=== PATIENT | female | born 1995 | race Caucasian/White ===

== ENCOUNTER → 2017-10-05 13:18 | Outpatient (REF) | payer BC, SELFPAY ==
[2017-10-05 22:12] LABS: Abs Immature Grans 0.03 k/cumm (0.0-0.09); Absolute Basophil Count 0.02 k/cumm (0.0-0.2); Absolute Lymphocyte Count 1.49 k/cumm (1.2-3.4); Absolute Monocyte Count 0.86 k/cumm (0.11-0.7); Basophils % 0.2; Eosinophils % 0.9; HCT 38.5 % (36.0-46.0); Immature Grans % 0.3; Lymphocytes % 12.8; Mean Corp. HGB Concentration 33.8 g/dL (32.0-36.0); Mean Corpuscular Hemoglobin 31.5 pg (27.0-33.0); Mean Corpuscular Volume 93.2 fL (80-95); Monocytes % 7.4; Neutrophils % 78.4; Platelet Count 265 x1000/uL (130-400); RBC 4.13 m/cumm (4.00-5.20); RBC Distribution Width 12.6 % (11.7-14.6); White Blood Cell Count 11.67 k/cumm (4.4-10.8)
[2017-10-05 22:19] LABS: Mono Screening Negative (Negative)
[2017-10-05 22:22] LABS: Absolute Eosinophil Count 0.11 k/cumm (0.0-0.7); Absolute Neutrophil Count 9.15 k/cumm (1.2-6.7)
== END ==
LOC: NCHCN 13:18
PROVIDERS: PCP Specialist/Technologist Athletic Trainer; Visit Provider Specialist/Technologist Athletic Trainer
DX: R53.83 Other fatigue (principal); J02.9 Acute pharyngitis, unspecified
CPT/HCPCS: 85025; 86308; 87070

== ENCOUNTER 2019-02-24 15:40 | Emergency (ER) | payer OTHER, BC, SELFPAY ==
[2019-02-24 15:43] VITALS: BP 128/75; PULSE 80; RESP 16; TEMP 36.7; O2SAT 99
--- NOTE | 2019-02-24 16:02 | ED.GENADUL_ITS ---
Discharge Plan Disposition Patient Disposition: HOME Condition: Improving Discharge Details Chief Complaint: Laceration Clinical Impression: Laceration of hand, left Primary Care Provider: Teddy Spring ED Provider: Vikas Perez Home Meds and New Rx's Prescriptions: Continued Bcp 1 tab PO DAILY RF: 0 Discharge Instructions Instructions: Laceration (ED) Additional Instructions: Return if you develop fever, foul-smelling discharge from the wound or any other acute concerns. Return in 7 to 8 days for removal of stitches. Wear gloves while at work until healed. Medical Decision Making 23-year-old female presents from work where she punctured her left hand with a knife in the kitchen. Her tetanus is up-to-date. She was consented, anesthetized, liberally irrigated, examined in a bloodless field without evidence of underlying structural injury. Repaired with 2 interrupted nylon sutures. Good wound apposition. Dressed at the bedside. She is stable for discharge to home. HPI General Mode of arrival: ambulatory . Date/Time Provider Initiated Documentation: 02/24/19 15:41 . Limitations to Documentation: no limitations . Information obtained by: patient . History of Present Illness 23 year old F presents to the emergency department with the chief complaint of Left thumb laceration at work, described as mild, and is localized to the left and upper extremity. Patient reports no radiation. Patient started experiencing this minute(s) and it has been constant. No relieving factors improve symptom(s), No exacerbating factors reported . Patient did receive the following treatments prior to arrival, other (Dressing placed) Related Data Home Medications Medication Instructions Recorded Confirmed Bcp 1 tab PO DAILY 02/24/19 02/24/19 Allergies Allergy/AdvReac Type Severity Reaction Status Date / Time No Known Allergies Allergy Unverified 02/24/19 16:00 General Stated Complaint: Laceration BASSAM: 4 Review of Systems Narrative: Tetanus up-to-date. No other injury. She has otherwise been well. No numbness or tingling. [facility] Social History Smoking/Tobacco Use Status: Never Drug use: Never Do you feel safe at home: Yes Do you feel safe in your relationship?: Yes Exam Narrative Exam Narrative: GEN: awake, alert, oriented 3. Pleasant, well groomed, interactive. HEAD: Normocephalic, atraumatic ENT: Mucous membranes moist, oropharynx unremarkable, External ear exam unremarkable EYES: PERRL, EOMI EXT: Full ROM, no edema, no rash. There is a punctate 0.5 cm laceration at the base of the thumb overlying the thenar eminence. Sensation is intact and all range of motion's of the thumb are intact with normal strength. Neuro: Grossly normal neurologic exam, conversant, interactive. Psych: Speech fluent, thoughts congruent, affect normal Course Vital Signs Vital signs: Vital Signs Temperature 36.7 C 02/24/19 15:43 Pulse 80 02/24/19 15:43 Respiratory Rate 16 02/24/19 15:43 Blood Pressure 128/75 02/24/19 15:43 Pulse Oximetry 99 02/24/19 15:43 Temperature 36.7 C 02/24/19 15:43 Temperature Source Temporal Artery Scan 02/24/19 15:43 Pulse 80 02/24/19 15:43 Respiratory Rate 16 02/24/19 15:43 Respiratory Effort Non-Labored 02/24/19 15:46 Blood Pressure 128/75 02/24/19 15:43 Blood Pressure Position Sitting 02/24/19 15:43 Pulse Oximetry 99 02/24/19 15:43 Oxygen Delivery Method Room Air 02/24/19 15:43 Oxygen Flow Rate 0 02/24/19 15:43 Pain Level 3 02/24/19 15:43 Procedures Laceration Laceration 1: Site: hand Side (If applicable): left Size (cm): 0.5 Description: linear Depth: simple, single layer Local Anesthetic: Lidocaine 1% Pre-repair: wound explored and irrigated extensively Skin layer closed with: nylon Size (cm): 4-0 Technique: simple, interrupted
== END 2019-02-24 16:18 | disposition home or self-care (01) ==
PROVIDERS: Emergency Provider Emergency Medicine; PCP Specialist/Technologist Athletic Trainer
DX: S61.412A Laceration without foreign body of left hand, initial encounter (principal); W26.0XXA Contact with knife, initial encounter
CPT/HCPCS: 12001

== ENCOUNTER 2019-03-04 18:58 | Emergency (ER) | payer BC, SELFPAY ==
[2019-03-04 19:02] VITALS: BP 130/60; PULSE 83; RESP 16; TEMP 36.6; O2SAT 98
--- NOTE | 2019-03-04 19:04 | W.ED.GENAD ---
Discharge Plan Disposition Patient Disposition: HOME Condition: Good Discharge Details Chief Complaint: SutureRem Clinical Impression: Encounter for removal of sutures Primary Care Provider: Teddy Spring ED Provider: Sarah Del Cid Home Meds and New Rx's Prescriptions: No Action No Known Home Meds RF: 0 Discharge Instructions Instructions: Stitches Removal (ED) Medical Decision Making Patient is a pleasant 23-year-old josfu-raxo-[id number] female presents today with chief complaint of suture removal to the left hand. Left thumb after she cut herself with a knife. She reports she was seen here 8 days ago at which time #2 sutures were placed into the flexor surface of the MCP joint of the left. Wound appears to be healing well no signs of infection. #2 stitches removed by myself. Wound is well approximated. We discussed wound care further we discussed activities to avoid. Reiterated the symptoms of infection. She will follow-up as needed. All of her questions and concerns were addressed and she is in agreement this plan. HPI General Mode of arrival: ambulatory. Date/Time Provider Initiated Documentation: 03/04/19 19:04. Limitations to Documentation: no limitations. Information obtained by: patient and RN notes reviewed. History of Present Illness 23 year old F presents to the emergency department with the chief complaint of suture removal base of left thumb, described as mild (denies any pain), and is localized to the left and upper extremity. Patient reports no radiation. Patient started experiencing this day(s) (8) and it has been now resolved. No relieving factors improve symptom(s), No exacerbating factors reported . Patient notes no other symptoms.. Patient did receive the following treatments prior to arrival, other (#2 sutures placed here 8 days ago) Related Data Home Medications Medication Instructions Recorded Confirmed Unknown [No Known Home Meds] 03/04/19 03/04/19 Allergies Allergy/AdvReac Type Severity Reaction Status Date / Time No Known Allergies Allergy Unverified 03/04/19 19:05 Review of Systems Constitutional Constitutional: Reports as per HPI, Denies chills, Denies fever(s) and Denies weakness Musculoskeletal Musculoskeletal: Reports as per HPI and Denies tingling Integumentary/Breasts Skin/Breast: Reports as per HPI Neurologic Neurologic: Denies sensory deficit, Denies tingling and Denies weakness FORMERLY [facility], 1928–1983 Medical History No acute medical problems (Acute) Social History Smoking/Tobacco Use Status: Never Alcohol Intake: current Alcohol Intake frequency: a few times a month Alcohol type: wine Substance use type: does not use Additional Social history: pt is here with significant other; interacts well Exam Const General: cooperative, healthy appearing, comfortable, no acute distress and well developed Nutritional Appearance: average body habitus and well nourished Orientation: alert and awake Resp Effort & Inspection: normal respiratory effort, able to speak in complete sentences and no respiratory distress Cardio Rate: regular rate Rhythm: regular rhythm Skin Trauma: laceration (flexor surface left thumb MCP joint, healing well) Neuro General: alert and awake Cognition: normal cognition Speech: speech normal Gait: normal gait Motor: muscle tone normal throughout Extrem General: normal to inspection, full ROM, normal capillary refill and no joint enlargement Left upper extremity: normal to inspection, full ROM, normal capillary refill and no joint enlargement Psych Appearance: grossly normal and well kempt Mental Status: mental status grossly normal Speech and Movement: speech and movement normal
== END 2019-03-04 19:15 | disposition home or self-care (01) ==
LOC: ER 19:17
PROVIDERS: Emergency Provider Physician Assistant; PCP Specialist/Technologist Athletic Trainer
DX: S61.412D Laceration without foreign body of left hand, subsequent encounter (principal); W26.0XXD Contact with knife, subsequent encounter; Z48.02 Encounter for removal of sutures

== ENCOUNTER 2020-01-09 17:56 | Outpatient (REF) | payer BC, SELFPAY ==
[2020-01-11 14:15] LABS: Patient Race White; SARS-CoV-2 RNA Undetected (Undetected); SARS-CoV-2 Specimen Source Nasal
== END 2020-01-09 18:16 ==
LOC: NCHCN 17:56
PROVIDERS: PCP Specialist/Technologist Athletic Trainer; Visit Provider Nurse Practitioner Family
DX: J06.9 Acute upper respiratory infection, unspecified (principal)
CPT/HCPCS: U0003

== ENCOUNTER 2020-10-02 11:18 | Outpatient (REF) | payer BC, SELFPAY ==
[2020-10-02 20:49] LABS: Abs Immature Grans 0.05 10^3/uL (0.0-0.06); Absolute Basophil Count 0.03 10^3/uL (0.0-0.2); Absolute Eosinophil Count 0.37 10^3/uL (0.0-0.7); Absolute Lymphocyte Count 2.01 10^3/uL (1.2-3.4); Absolute Monocyte Count 0.59 10^3/uL (0.1-0.8); Basophils % 0.2; Eosinophils % 2.9; HCT 41.5 % (36.0-46.0); Immature Grans % 0.4; Lymphocytes % 15.6; MCH 30.8 pg (27.0-33.0); MCHC 33.7 % (32.0-36.0); MCV 91.4 fL (80-95); MPV 11.2 fL (8.0-11.0); Monocytes % 4.6; Neutrophils % 76.3; Nucleated RBC 0 %; Platelet Count 311 10^3/uL (130-400); RBC 4.54 10^6/uL (3.93-5.22); RDW 12.1 % (11.7-14.6); RDW-SD 40.9 fL
[2020-10-02 21:06] LABS: ALT 38 U/L (14-59); AST 20 U/L (15-37); Albumin 3.8 g/dL (3.4-5.0); Alkaline Phosphatase 75 U/L (46-116); Anion Gap 12.6 mmol/L (3-11); BUN 8 mg/dL (7-18); Bilirubin, Total 0.3 mg/dL (0.2-1.0); C-Reactive Protein 3.23 mg/dL (0.0-0.3); CO2 23.4 mmol/L (21.0-32.0); CREATININE 0.8 mg/dL (0.55-1.02); Calcium 9.4 mg/dL (8.5-10.1); Chloride 105 mmol/L (98-107); Glucose 91 mg/dL (74-106); Potassium 4.1 mmol/L (3.5-5.1); Sodium 141 mmol/L (136-145); Total Protein 7.4 g/dL (6.4-8.2)
[2020-10-02 21:07] LABS: Absolute Neutrophil Count 9.84 10^3/uL (1.2-6.7)
[2020-10-02 21:08] LABS: ESR 18 mm/hr (0-20)
[2020-10-03 14:24] LABS: COVID-19 RT-PCR UVMMC Result Negative (Negative)
[2020-10-04 10:09] LABS: Lyme Ab w Rflx to Lyme Confirm Negative (Negative)
[2020-10-09 11:19] LABS: IgA 128 mg/dL (85-499); Interpretation (See Note); Tissue Transglutaminase IgA <1.2 U/mL (<4.0)
== END 2020-10-02 11:19 | disposition home or self-care (01) ==
LOC: LBN 11:18
PROVIDERS: PCP Specialist/Technologist Athletic Trainer; Visit Provider Nurse Practitioner Family
DX: R19.7 Diarrhea, unspecified (principal); Z20.822 Contact with and (suspected) exposure to COVID-19
CPT/HCPCS: 80053; 82784; 83516; 85652; U0003; 85025; 86140; 86618

== ENCOUNTER 2020-10-02 12:00 | Outpatient (CLI) | payer BC, SELFPAY ==
--- NOTE | 2020-10-02 | DI.CT_ITS ---
Exam(s) CT ABDOMEN PELVIS W EXAM: CT ABDOMEN PELVIS W CLINICAL HISTORY: ABD PAIN R10.84, TENDER TO LIGHT TOUCH, 10-12 EPISODES WATERY DIARRHEA,. TECHNIQUE: Imaging Protocol: Axial computed tomography images with coronal and sagittal reformatted images were created and reviewed CONTRAST MATERIAL: Intravenous: Omnipaque 100cc Oral: None COMPARISON: No exams were available for comparison FINDINGS: VISUALIZED LUNG BASES: No nodules nor pleural effusions evident. ABDOMEN: There is no ascites. LIVER: There are no focal hepatic lesions evident . GALLBLADDER/BILIARY: No obvious gallbladder pathology. CBD is not dilated. PANCREAS: No evidence of pancreatic mass nor dilatation of the pancreatic duct. SPLEEN: Spleen is not enlarged. No obvious intrasplenic lesions. Splenic and portal veins are paten t. ADRENALS: There are no significant adrenal masses. KIDNEYS:No cysts evident. No solid renal masses. No calculi nor hydronephrosis.. ABDOMINAL AORTA: Abdominal aorta is not enlarged. LYMPH NODES:There is no para-aortic adenopathy but there are multiple enlarged mesenteric lymph nodes measuring up to 1.5 cm size. ABDOMINAL WALL: No evidence of significant anterior abdominal wall hernia. GI: There appears to be a diffuse colitis pattern. No small bowel obstruction. PELVIS: GI: No evidence of appendicitis.No evidence of sigmoid diverticulitis. LYMPH NODES: No adenopathy around the aortic bifurcation nor along the iliac chains. There is no ing uinal adenopathy. REPRODUCTIVE: Uterus and adnexal regions appear age-appropriate. No free fluid URINARY BLADDER: No calculi nor obvious masses evident OSSEOUS: No significant osseous lesions. IMPRESSION: 1. There is a diffuse colitis pattern and there are prominent mesenteric lymph nodes. Correlation wi th any history of ulcerative colitis is recommended. The enlarged lymph nodes may be related to the ulcerative colitis, either directly or indirectly. If this patient is a known ulcerative colitis pat ient on Remicade or other biologic than the possibility of lymphoma is to be considered. RADIATION DOSE DELIVERED: 858.96mGy.cm Total DLP DATA REPOSITORY: All CT scans at this facility are submitted to the National Radiology Data Registry (NRDR) Dose Index Registry (DIR) with the [employer] (A[employer]). RADIATION OPTIMIZATION: All CT scans at this facility use at least one of these dose optimization te chniques: automated exposure control; mA and/or kV adjustment per patient size (includes targeted exa ms where dose is matched to clinical indication); or iterative reconstruction.
[2020-10-02] MEDS: Breeza Beverage 473 ML BTL PO (14:50)
[2020-10-02] MEDS: Omnipaque 350 MG/ML 50 ML BTL PO (14:54)
[2020-10-02] MEDS: Omnipaque 350 MG/ML 100 ML BTL IJ (15:50)
[2020-10-02] MEDS: Normal Saline Flush 10 ML SYR IVP (16:02)
--- NOTE | 2020-10-02 17:06 | DI.VRAD_ITS ---
PROCEDURE INFORMATION: Exam: CT Abdomen And Pelvis With Contrast Exam date and time: 10/02/2020 3:58 PM Age: 25 years old Clinical indication: Other: Abdominal pain, tender to light touch, diarhea x1 week, family history of crohns disease; Additional info: Abdominal pain, tender to light touch, diarhea x1 week, pui TECHNIQUE: Imaging protocol: Computed tomography of the abdomen and pelvis with contrast. Radiation optimization: All CT scans at this facility use at least one of these dose optimization techniques: automated exposure control; mA and/or kV adjustment per patient size (includes targeted exams where dose is matched to clinical indication); or iterative reconstruction. Contrast material: OMNIPAQUE; Contrast volume: 100 ml; Contrast route: INTRAVENOUS (IV); COMPARISON: No relevant prior studies available. FINDINGS: Liver: Normal. No mass. Gallbladder and bile ducts: Normal. No calcified stones. No ductal dilation. Pancreas: Normal. No ductal dilation. Spleen: Normal. No splenomegaly. Adrenal glands: Normal. No mass. Kidneys and ureters: Normal. No hydronephrosis. Stomach and bowel: Wall thickening with surrounding inflammatory change sigmoid, left and transverse colon consistent with a nonspecific colitis. No evidence of intestinal perforation or obstruction. Appendix: No evidence of appendicitis. Intraperitoneal space: See Lymph nodes finding. Vasculature: Unremarkable. No abdominal aortic aneurysm. Lymph nodes: Prominent lymph nodes at the small bowel mesentery and right lower quadrant. These may be reactive, but an infectious, or inflammatory process such as mesenteric adenitis cannot be excluded. Correlate clinically. Urinary bladder: Unremarkable as visualized. Reproductive: Unremarkable as visualized. Bones/joints: Unremarkable. No acute fracture. Soft tissues: Unremarkable. IMPRESSION: 1. Prominent mesenteric nodes, see above comments. 2. Wall thickening with surrounding inflammatory change sigmoid, left and transverse colon consistent with a nonspecific colitis. Dictated and Authenticated by: Celestino Arrington MD. Ordering:BILLY Farmer MD
== END 2020-10-02 12:20 ==
PROVIDERS: PCP Specialist/Technologist Athletic Trainer; Visit Provider Nurse Practitioner Family
DX: R10.84 Generalized abdominal pain (principal); R19.7 Diarrhea, unspecified; K52.3 Indeterminate colitis; D48.4 Neoplasm of uncertain behavior of peritoneum
CPT/HCPCS: 74177; J3490; Q9967

== ENCOUNTER 2020-10-04 15:52 | Outpatient (REF) | payer BC, SELFPAY ==
[2020-10-04 11:21] LABS: Bilirubin Negative (Negative); Blood Negative (Negative); Clarity Cloudy (Clear); Glucose Negative (Negative); Ketones Negative (Negative); Leukocyte Esterase Negative (Negative); Nitrite Negative (Negative); Specific Gravity >= 1.030 (1.005-1.025); Urobilinogen 0.2 EU/dL (Up TO 0.2)
[2020-10-04 11:27] LABS: Bacteria Rare HPF (Negative); C & S Indicated? No; Casts Negative LPF (Negative); Crystals Many Amorphous HPF (Negative); Epithelial Cells Rare HPF (Negative); Mucus Trace (Negative); RBC 0-2 HPF (0-2); WBC 0-2 HPF (0-5)
[2020-10-04 23:42] LABS: C Difficile PCR Negative (Negative); Campylobacter PCR Negative (Negative); Salmonella PCR Negative (Negative); Shiga Toxin PCR Negative (Negative); Shigella/Enteroinvasive Ecoli Negative (Negative)
[2020-10-06 19:24] LABS: Calprotectin 131.7 mcg/g
== END 2020-10-04 15:53 | disposition home or self-care (01) ==
LOC: LBN 15:52
PROVIDERS: PCP Specialist/Technologist Athletic Trainer; Visit Provider Nurse Practitioner Family
DX: R10.30 Lower abdominal pain, unspecified (principal); R19.7 Diarrhea, unspecified; R82.998 Other abnormal findings in urine
CPT/HCPCS: 87329; 87493; 87505; 81003; 81015; 83630; 83993; 87798

== ENCOUNTER 2020-11-12 17:41 | Outpatient (REF) | payer SELFPAY ==
[2020-11-14 12:58] LABS: COVID-19 RT-PCR UVMMC Result Negative (Negative)
== END 2020-11-12 17:42 | disposition home or self-care (01) ==
LOC: NCHCN 17:41
PROVIDERS: PCP Specialist/Technologist Athletic Trainer; Visit Provider Nurse Practitioner Family
DX: Z20.822 Contact with and (suspected) exposure to COVID-19 (principal); R05.8 Other specified cough
CPT/HCPCS: U0003

== ENCOUNTER 2021-01-15 18:36 | Outpatient (REF) | payer OTHER, SELFPAY ==
[2021-01-17 14:05] LABS: COVID-19 RT-PCR UVMMC Result Negative (Negative)
== END 2021-01-15 18:37 | disposition home or self-care (01) ==
LOC: LBN 18:36
PROVIDERS: PCP Specialist/Technologist Athletic Trainer; Visit Provider Nurse Practitioner Family
DX: Z20.822 Contact with and (suspected) exposure to COVID-19 (principal); J02.9 Acute pharyngitis, unspecified
CPT/HCPCS: U0003; 87070

== ENCOUNTER 2021-02-08 08:40 | Outpatient (CLI) | payer OTHER, SELFPAY ==
[2021-02-08 10:27] LABS: Source Nasal/Nares
[2021-02-08 16:48] LABS: COVID-19 PCR Negative (Negative)
== END 2021-02-08 08:41 | disposition home or self-care (01) ==
PROVIDERS: PCP Specialist/Technologist Athletic Trainer; Visit Provider Dentist General Practice
DX: Z20.822 Contact with and (suspected) exposure to COVID-19 (principal)
CPT/HCPCS: 87635

== ENCOUNTER 2021-02-22 03:53 | Outpatient (CLI) | payer OTHER, SELFPAY ==
[2021-02-22 19:27] LABS: COVID-19 RT-PCR UVMMC Result Negative (Negative)
== END 2021-02-22 03:54 | disposition home or self-care (01) ==
LOC: LBO 03:53
PROVIDERS: PCP Specialist/Technologist Athletic Trainer; Visit Provider Dentist General Practice
DX: Z20.822 Contact with and (suspected) exposure to COVID-19 (principal)
CPT/HCPCS: U0003

== ENCOUNTER 2021-03-01 10:17 | Outpatient (CLI) | payer OTHER, SELFPAY ==
[2021-03-01 21:12] LABS: COVID-19 RT-PCR UVMMC Result Negative (Negative)
== END 2021-03-01 10:18 | disposition home or self-care (01) ==
PROVIDERS: PCP Specialist/Technologist Athletic Trainer; Visit Provider Dentist General Practice
DX: Z20.822 Contact with and (suspected) exposure to COVID-19 (principal)
CPT/HCPCS: U0003

== ENCOUNTER 2021-04-05 08:26 | Outpatient (CLI) | payer OTHER, SELFPAY ==
[2021-04-06 12:18] LABS: COVID-19 RT-PCR UVMMC Result Negative (Negative)
== END 2021-04-05 08:27 | disposition home or self-care (01) ==
PROVIDERS: PCP Specialist/Technologist Athletic Trainer; Visit Provider Dentist General Practice
DX: Z20.822 Contact with and (suspected) exposure to COVID-19 (principal)
CPT/HCPCS: U0003

== ENCOUNTER 2021-08-03 10:56 | Outpatient (REF) | payer OTHER, SELFPAY ==
[2021-08-03 17:51] LABS: Bilirubin Negative (Negative); Blood Trace-intact (Negative); Clarity Clear (Clear); Glucose Negative (Negative); Ketones Negative (Negative); Leukocyte Esterase Negative (Negative); Nitrite Negative (Negative); Urobilinogen 0.2 EU/dL (Up TO 0.2)
[2021-08-03 18:06] LABS: Epithelial Cells Negative HPF (Negative); RBC 0-2 HPF (0-2); WBC Negative HPF (0-5)
[2021-08-03 18:07] LABS: Bacteria Rare HPF (Negative); C & S Indicated? C&S Done As Ordered; Crystals Negative HPF (Negative); Mucus Negative (Negative); Other Cells Rare Transitional (Negative)
== END 2021-08-03 10:57 | disposition home or self-care (01) ==
LOC: LBN 10:56
PROVIDERS: PCP Specialist/Technologist Athletic Trainer; Visit Provider Physician Assistant Medical
DX: R35.0 Frequency of micturition (principal)
CPT/HCPCS: 81003; 81015; 87086

== ENCOUNTER 2022-04-14 17:30 | Outpatient (REF) | payer OTHER, SELFPAY | END 2022-04-14 17:31 | disposition home or self-care (01) | LOC: NCHCN 17:30 | PROVIDERS: PCP Specialist/Technologist Athletic Trainer; Visit Provider Nurse Practitioner Family | DX: Z00.00 Encounter for general adult medical examination without abnormal findings (principal); R35.0 Frequency of micturition; F41.8 Other specified anxiety disorders | CPT/HCPCS: 87086 ==

== ENCOUNTER 2022-04-18 02:26 | Outpatient (CLI) | payer OTHER, SELFPAY ==
[2022-04-18 11:38] LABS: HCT 38.7 % (36.0-46.0); HGB 13.6 g/dL (11.2-15.7); MCH 32.2 pg (27.0-33.0); MCHC 35.1 % (32.0-36.0); MCV 92 fL (80-95); MPV 10.7 fL (8.0-11.0); Platelet Count 244 10^3/uL (130-400); RBC 4.22 10^6/uL (3.93-5.22); RDW 12.2 % (11.7-14.6); RDW-SD 39.8 fL; WBC 7.75 10^3/uL (4.4-10.8)
[2022-04-18 12:14] LABS: TSH (W/Ref FT4) 1.07 uIU/mL (0.36-3.74)
== END 2022-04-18 02:27 | disposition home or self-care (01) ==
LOC: LBO 02:27
PROVIDERS: PCP Specialist/Technologist Athletic Trainer; Visit Provider Nurse Practitioner Women's Health
DX: Z13.29 Encounter for screening for other suspected endocrine disorder (principal); N91.2 Amenorrhea, unspecified; R53.83 Other fatigue
CPT/HCPCS: 36415; 85027; 84443

== ENCOUNTER 2022-06-27 14:54 | Outpatient (REF) | payer OTHER, SELFPAY ==
[2022-06-27 15:38] LABS: HGB 13.7 g/dL (11.2-15.7); MCH 30.8 pg (27.0-33.0); MCHC 33.4 % (32.0-36.0); MCV 92 fL (80-95); MPV 11.3 fL (8.0-11.0); Platelet Count 273 10^3/uL (130-400); RBC 4.45 10^6/uL (3.93-5.22); RDW 11.9 % (11.7-14.6); RDW-SD 40.7 fL; WBC 5.29 10^3/uL (4.4-10.8)
[2022-06-27 16:03] LABS: TSH (W/Ref FT4) 0.58 uIU/mL (0.36-3.74)
[2022-06-27 17:44] LABS: Vitamin D 25 Total 18.1 ng/mL (30-100)
== END 2022-06-27 14:55 | disposition home or self-care (01) ==
LOC: NCHCN 14:54
PROVIDERS: PCP Specialist/Technologist Athletic Trainer; Visit Provider Nurse Practitioner Family
DX: R53.83 Other fatigue (principal); Z86.16 Personal history of COVID-19; E55.9 Vitamin D deficiency, unspecified
CPT/HCPCS: 82306; 85027; 84443

== ENCOUNTER 2023-06-23 10:46 | Outpatient (CLI) | payer BC, SELFPAY ==
--- NOTE | 2023-06-23 09:00 | DI.RAD_ITS ---
Exam(s) XR KNEE RT 3V AP,LAT,MARKY EXAM: XR KNEE RT 3V AP,LAT,MARKY CLINICAL HISTORY: RIGHT KNEE PAIN. TECHNIQUE: 2D digital imaging was performed. COMPARISON: No exams were available for comparison FINDINGS: 3 views No evidence of fracture or joint effusion. No joint space narrowing. Bone density normal. No osseo us lesions. IMPRESSION: No acute osseous findings in the right knee. DATA REPOSITORY: RADIATION DOSE DELIVERED:
== END 2023-06-23 10:47 | disposition home or self-care (01) ==
LOC: DIORS 10:47
PROVIDERS: PCP Nurse Practitioner Family; Visit Provider Student in an Organized Health Care Education/Training Program
DX: M25.561 Pain in right knee (principal)
CPT/HCPCS: 73562

== ENCOUNTER → 2023-07-10 00:06 | Outpatient (CLI) | payer BC, SELFPAY ==
--- NOTE | 2023-07-10 06:45 | DI.MRI_ITS ---
Exam(s) MR LOWER JOINT RT WO EXAM: MR LOWER JOINT RT WO CLINICAL HISTORY: R KNEE PAIN, TEAR MEDIAL MENISCUS, S83.241A. TECHNIQUE: Multiplanar multisequence MRI was performed. COMPARISON: Plain films 23 Jun 2023 FINDINGS: BONES: There is no fracture or contusion pattern. JOINTS: A minimal joint effusion is present. Articular cartilage: Patellofemoral joint: Articular cartilage is unremarkable. Medial femoral tibial joint: Articular cartilage is unremarkable. Lateral femoral tibial joint: Articular cartilage is unremarkable. TENDONS: Extensor mechanism: Unremarkable. Medial retinaculum: Unremarkable. Lateral retinaculum: Unremarkable. Popliteus: Unremarkable. MUSCLES: Unremarkable. MENISCI: The medial meniscus is unremarkable. The lateral meniscus is unremarkable. SOFT TISSUES: Unremarkable. LIGAMENTS: Anterior Cruciate: Unremarkable. Posterior Cruciate: Unremarkable. Medial Collateral:Unremarkable. Lateral Collateral: Unremarkable. IMPRESSION: Unremarkable MRI of the left/right knee. DATA REPOSITORY:
== END ==
PROVIDERS: PCP Nurse Practitioner Family; Visit Provider Student in an Organized Health Care Education/Training Program
DX: M25.561 Pain in right knee (principal)
CPT/HCPCS: 73721

== ENCOUNTER 2023-08-27 08:52 | Day surgery (SDC) | payer BC, SELFPAY ==
[2023-08-27] VITALS (18 sets, daily range): BP systolic 90–124; BP diastolic 36–65; PULSE 54–71; RESP 16; TEMP 36–36.9; O2SAT 95–100; BMI 26.6
--- NOTE | 2023-08-27 07:18 | W.PM.DSUDISC ---
Date of service: 08/27/23 Time of Service: 14:00 Discharge Plan Disposition Patient Disposition: Home Condition: Stable Discharge Details Attending Provider: Jaydon Figueroa Primary Care Provider: Yanet Batista V Home Meds and New Rx's Prescriptions: New aspirin 81 mg tablet,delayed release (DR/EC) 81 mg PO DAILY 14 Days Qty: 14 0RF naproxen 250 mg tablet 250 - 500 mg PO BID PRN (Reason: Moderate pain) Qty: 40 0RF oxycodone 5 mg tablet 5 - 10 mg PO Q4H PRN (Reason: Moderate to severe pain) Qty: 18 0RF Continued fexofenadine 180 mg tablet 180 mg PO DAILY dicyclomine 10 mg capsule 10 mg PO QHS Discharge Instructions Additional Instructions: Surgery: Right knee arthroscopy with synovectomy (medial plica, suprapatellar adhesions, and Hoffa's fat pad) and patellar chondroplasty (medial facet) Activity: Weightbearing as tolerated. Advance range of motion as comfort allows. No knee brace or crutches needed as soon as comfortable. Recommend avoiding sports, pivoting, and squatting for about 6-8 weeks. A physical therapy prescription will be sent on follow-up if needed. Prescriptions: Aspirin 81 mg take 1 daily to prevent a blood clot for 14 days, start tomorrow morning Naproxen 250 mg take 1-2 every 12 hours with a meal as needed for moderate pain Oxycodone 5 mg take 1-2 every 4-6 hours as needed for severe pain You may use [id number] Tylenol (acetaminophen) as needed for mild pain. These pain medications may be taken all at once or in different combinations as needed. Also, recommend Colace (docusate) as a stool softener as surgery and pain medicine cause constipation. You may try [id number] diphenhydramine (Benadryl) 25-50 mg nightly as a sleep aid Dressings: Leave dressing in place for 3 days. May then remove and leave open to air or cover incisions with Band-Aids. Leave the sticky Steri-Strips in place until they fall off or remove them after you shower. May shower after 5 days. Follow-up: 10-[address] Figueroa You may take off the leg compression stockings this evening at home. You may also leave them on a few days longer if you have a history of leg swelling or edema. Let us know right away if you develop any redness, drainage, fevers, chest pain, or trouble breathing. Do not drink alcohol or drive for at least 24 hours after anesthesia. Please call the office during business hours with any questions or concerns. Stand Alone Forms: Anesthesia Discharge Inst., Luci Perales (DSU) Discharge Orders Discharge Orders: Discharge Order (Routine); Ordered 08/27/23 Ordered By: Kulwinder Davila DS: Diagnosis Discharge Diagnosis (1) Synovitis of right knee: Status: Acute
[2023-08-27] MEDS: Lactated Ringers 1,000 ML 30 ML IV (09:26)
--- NOTE | 2023-08-27 09:31 | W.ANESPRE ---
General Info Date of Service Date Performed: 08/27/23 Height: 5 ft 5 in Weight: 72.6 kg Body Mass Index (BMI): 26.6 Surgical Procedure: Operation Date: 08/27/23 10:40 Proposed Procedure Side Surgeon p Knee Arthroscopy Right Jaydon Figueroa MD Meds Allergies and Home Medications Allergies Allergy/AdvReac Type Severity Reaction Status Date / Time No Known Allergies Allergy Verified 08/27/23 09:25 Home Medication ?Medication ?Instructions ?Recorded dicyclomine 10 mg capsule 10 mg PO QHS 06/23/23 fexofenadine 180 mg tablet 180 mg PO DAILY 06/23/23 aspirin 81 mg tablet,delayed 81 mg PO DAILY Prevent blood clot 08/27/23 release 14 days #14 tabs naproxen 250 mg tablet 250 - 500 mg (1 - 2 x 250 mg) PO 08/27/23 BID PRN Moderate pain #40 tabs oxycodone 5 mg tablet 5 - 10 mg (1 - 2 x 5 mg) PO Q4H 08/27/23 PRN Moderate to severe pain #18 tabs Current Visit Medications: Current Medications Generic Name Dose Route Start Last Admin Trade Name Freq PRN Reason Stop Dose Admin Ringer's Solution 1,000 mls @ 30 mls/hr 08/27/23 06:00 08/27/23 09:26 IV 08/27/23 23:59 30 mls/hr INFUSION SHIKHA Administration Cefazolin Sodium/Dextrose 2 gm in 50 mls @ 100 mls/hr 08/27/23 06:00 Ancef Duplex IVPB 08/27/23 23:59 PREOP SHIKHA Tranexamic Acid/Sodium Chloride 1,000 mg in 100 mls @ 600 mls/hr 08/27/23 06:00 IVPB 08/27/23 23:59 PREOP SHIKHA IV Miscellaneous Supplies 1 each 08/27/23 06:00 Iv Access IV 08/27/23 23:59 DIRECTED SHIKHA Oxycodone HCl 0 mg 08/27/23 07:18 Oxycodone 5 Mg Tab PO 09/26/23 07:17 Q3H PRN PRN Pain Sodium Chloride 0 ml 08/27/23 06:00 Normal Saline Flush 10 Ml Syr IV 08/27/23 23:59 PRN PRN Sodium Chloride 0 ml 08/27/23 06:00 Normal Saline 10 Ml Vial IJ 08/27/23 23:59 DIRECTED PRN Sterile Water 0 ml 08/27/23 06:00 Water,Injection,Sterile 10 Ml Vial IJ 08/27/23 23:59 DIRECTED PRN PFSH Active Problems Active Problems: Problem Status Onset Code Hoffa disease of right knee Acute E88.89 Synovitis of right knee Acute M65.9 Medical History Medical History Environmental allergies IBS (irritable bowel syndrome) No acute medical problems Medical History Comments:: Pt. states she gets extreme anxiety when coming off of anesthesia Surgical History Surgical History Hx of wisdom tooth extraction Hx of colonoscopy Tobacco Smoking/Tobacco Use Status: Never Alcohol Alcohol Intake: current Alcohol intake frequency: a few times a month Alcohol type: wine Substance Use Substance use: Daily Substance use type: marijuana Vital Signs and Lab Results Vital Signs Most Recent Vital Signs in EMR: Most Recent Vital Signs Temp Pulse Resp BP Pulse Ox 36.9 C 70 16 99/65 L 98 08/27/23 08:58 08/27/23 08:58 08/27/23 08:58 08/27/23 08:58 08/27/23 08:58 Point of Care Results Point of Care Results: POC- Test(urine) Negative 08/27/23 09:30 Lab Results Blood Type / Crossmatch: No Data to Display Complete Blood Count: No Data to Display Complete Metabolic Panel: No Data to Display Liver Function Panel: No Data to Display Coagulation Panel: No Data to Display Cardiac Panel: No Data to Display Arterial Blood Gas: No Data to Display Venous Blood Gas: No Data to Display Pancreas Panel: No Data to Display Thyroid Panel: No Data to Display Infectious Disease: No Data to Display Blood Cultures: No Data to Display Toxicology Panel: No Data to Display Panel: No Data to Display Anesthesia Assessment and Plan Anesthesia History Personal History: Malignant Hyperthermia and Other (anxiety coming out of anesthesia) Family History: No Family History of Anesthesia Complications Exercise Tolerance Exercise Tolerance: Metabolic Equivalents>4 Pertinent Negatives Pertinent Negatives: No Symptoms of GERD, No Major Cardiovascular Symptoms or Complaints, No Major Pulmonary Symptoms or Complaints and No History of CVA/TIA Cardiac & Pulmonary Exam Cardiac Exam: Normal S1/S2 Heart Sounds Pulmonary Exam: Clear Bilateral Breath Sounds Implantable Cardiac Device Does patient have a Pacemaker or an ICD?: No Airway Exam Known Difficult Airway: No Mallampati Class: 1 Mouth Opening: Normal (> 3cm) Thyromental Distance: Greater than 3 cm Neck Range of Motion: Full ROM Neck Circumference: Normal Teeth Condition: Normal Dentition ASA Classification ASA Score: ASA 2 Emergency Case?: No NPO Status NPO Status: NPO Clears >2 hours, Solids >8 hours Status Status: Negative HCG Anesthesia Plan Resuscitation Status: Full Code Anesthesia Technique: General Anesthesia Airway Planned: LMA Monitors Used: Standard Monitors Preoperative Comments:: Plan Precedex to smooth out wake up.
[2023-08-27] MEDS: ceFAZolin 2 GM/50 ML BAG IVPB (10:59)
[2023-08-27] MEDS: TRANEXAMIC ACID/SOD. CHL. 1,000 MG/100 ML BAG 600 MG IVPB (11:09)
[2023-08-27] MEDS: Bupivacaine 0.25% Pres-Free W/EPI 30 ML VIAL (11:31)
[2023-08-27] MEDS: EPINEPHrine 10 MG/10 ML ML (11:40)
[2023-08-27] MEDS: MORPHine 4 MG/ML SYR (11:40)
--- NOTE | 2023-08-27 12:13 | ROE_ITS ---
Date of service: 08/27/23 Time of Service: 11:30 Operative Note Operative Note DATE OF PROCEDURE: 08/27/23 PRE-OP DIAGNOSIS: Right knee 1. Medial plica 2. Hoffa fat pad synovitis 3. Chondromalacia POST-OP DIAGNOSIS: same Right knee 1. Medial plica 2. Hoffa fat pad synovitis 3. Chondromalacia 4. Suprapatellar adhesions PROCEDURE: Right knee 1. Extensive debridement, CPT #75026: Including excision of medial gutter plical band, debridement of suprapatellar adhesions and Hoffa's fat pad synovitis 3. Chondroplasty, CPT #43173: Medial patellar facet SURGEON: Jaydon Figueroa MOVIE PROJECTIONIST: None None ANESTHESIA TYPE: Local By Surgeon and General LMA/ETT Refer to Anesthesia Record ESTIMATED BLOOD LOSS: 2 PATHOLOGY: none sent TOURNIQUET TIME: 0 COMPLICATIONS: None Patient was transported to: PACU Patient's condition: stable Indications: Please see complete medical record for details. Findings: Exam under anesthesia: Full range of motion, no instability, palpable anterior medial crepitation through mid to deep flexion Arthroscopic findings: Obvious medial gutter plical band engaging in the patellofemoral compartment during knee flexion. Mild far medial adjacent medial patellar facet small area of moderate cartilage fissures chondromalacia. Mild suprapatellar adhesions. Mild anterior intercondylar Hoffa's fat pad synovitis. Intact medial lateral menisci. Intact ACL. Other articular cartilage intact. Procedure Description: In the operating room, general anesthesia was induced. The patient was positioned supine on the operating room table. All bony prominences were well- padded. Preoperative antibiotics were administered. The knee was prepped and draped in the usual sterile fashion. The correct patient, procedure, and side of the procedure were all verified prior to incision. Exam under anesthesia was performed. 10 cc of 0.25% bupivacaine containing epinephrine was infiltrated about the planned anteromedial and anterolateral knee arthroscopy portals. The portals were established and a complete diagnostic arthroscopy was performed with relevant findings detailed above. In extension, the mechanical shaver was used to resect the medial plical band followed by the radiofrequency ablator to completely remove its origin and establish hemostasis into a smooth capsular margin. The shaver and ablator were then used to resect a few areas of suprapatellar adhesions. With the knee bent, the anterior intercondylar area was then opened up and Hoffa's fat pad and some synovitis debrided with the shaver and ablator as well. The anterior medial area and medial gutter were inspected and additional debridement done as needed to make sure all plica synovitis and engaging structures were removed while range of motion then demonstrated no impinging structures. Lastly the far medial aspect of the medial patella facet had a small may be 1 cm proximal to distal and 5 mm medial to lateral area of moderate patellar chondromalacia and fissures which were lightly resected to a more smooth and regular margin. Under direct arthroscopic visualization an 18-gauge needle was passed into the knee from superolateral into the suprapatellar pouch. The knee was copiously irrigated with arthroscopic fluid until there was a clear effluent before being drained of all fluid. The anteromedial and anterolateral portals were closed in 3-0 Monocryl in a buried interrupted fashion. 20 cc of 0.25% bupivacaine with epinephrine containing 4 mg of morphine was infiltrated into the knee through the previously placed needle. Mastisol, Steri-Strips, and 4 x 4 gauze were applied over the incisions. The knee was then wrapped gently with an LEILA comressive bandage. The patient awoke from anesthesia without complication and was transferred to the recovery room in a stable condition.
--- NOTE | 2023-08-27 12:59 | W.ANESPOSTOP ---
Postoperative Evaluation Date, Time and Location Date Performed: 08/27/23 Time Performed: 12:38 Patient Location: Day Surgery Unit Vital Signs Most Recent Imported Vital Signs: Most Recent Vital Signs Temp Pulse Resp BP Pulse Ox 36.1 C L 68 16 110/63 100 08/27/23 12:28 08/27/23 12:28 08/27/23 12:28 08/27/23 12:28 08/27/23 12:28 Pain Score Most Recent Pain Score: Most Recent Pain Score Pain Level 2 08/27/23 12:28 Assessment Mental Status: Awake (Alert & Oriented to Patient Baseline) Airway and Respiratory Function: Patent airway with normal (patient baseline) respiratory exam Cardiovascular Function: Hemodynamically Stable Hydration Status: Adequately Hydrated Nausea & Vomiting: No Nausea or Vomiting Pain: Pain is tolerable per patient Peripheral Nerve Block: Patient did not receive a nerve block
== END 2023-08-27 13:20 | disposition home or self-care (01) ==
LOC: SUR 08:53
PROVIDERS: PCP Family Medicine; Visit Provider Student in an Organized Health Care Education/Training Program
PROC: (CPT 29870; principal; 2023-08-27 10:30)
DX: M22.41 Chondromalacia patellae, right knee (principal); M65.861 Other synovitis and tenosynovitis, right lower leg; M67.51 Plica syndrome, right knee; M23.8X1 Other internal derangements of right knee
CPT/HCPCS: 29876; 81025; J0690; J1100; J1885; J2001; J2250; J2270; J2405; J2704

== ENCOUNTER 2024-08-05 12:01 | Outpatient (REF) | payer BC, SELFPAY ==
--- NOTE | 2024-08-05 07:45 | PAPFT_PTH ---
PATIENT: Lauryn Vergara LOC: [facility]#:[id number] AGE/SX: 28/F ROOM: RE08/05/[address]: Liliane Arcos : 1995 BED: DIS: 08/05/2024 SPEC #: [id number] RECD: 08/05/24 17:09 STATUS: SIMRAN REQ #: [id number] KEVIN: 08/05/24 07:[address]: Liliane Arcos DEPT: [facility] Cytology RECD BY: Cristina Truong Tissues: 1 - CX/ENDOCX FOR PAP SMEARS Procedures: PAP THIN PREP/UVM Screening HPV DNA PROBE Comments: [id number] (HPV 16 & 18/45) (CHLAMYDIA/GC)
[2024-08-05 16:00] LABS: Vitamin D 25 Total 16 ng/mL (30-100)
[2024-08-08 12:16] LABS: Chlamydia Result Negative (Negative); GC Result Negative (Negative)
== END 2024-08-05 12:02 | disposition home or self-care (01) ==
LOC: NCHCN 12:01
PROVIDERS: PCP Nurse Practitioner Family; Visit Provider Nurse Practitioner Family
DX: Z01.419 Encounter for gynecological examination (general) (routine) without abnormal findings (principal); E55.9 Vitamin D deficiency, unspecified; Z11.3 Encounter for screening for infections with a predominantly sexual mode of transmission
CPT/HCPCS: 82306; 87491; 87591; 88142; 87624

== ENCOUNTER 2024-11-09 19:49 | Emergency (ER) | payer BC, SELFPAY ==
[2024-11-09 19:52] VITALS: BP 131/75; PULSE 77; RESP 20; TEMP 36.7; O2SAT 98
--- NOTE | 2024-11-09 19:59 | W.ED.GENAD ---
Discharge Plan Disposition Patient Disposition: Home Condition: Good Discharge Details Clinical Impression: Foot sprain Primary Care Provider: Liliane Arcos ED Provider: Aaliyah Linn Home Meds and New Rx's Prescriptions: No Action fexofenadine 180 mg tablet 180 mg PO DAILY dicyclomine 10 mg capsule 10 mg PO QHS pantoprazole 20 mg tablet,delayed release (DR/EC) 20 mg PO DAILY Discharge Instructions Instructions: Foot Sprain (DC) Additional Instructions: Please call your primary care provider for reassessment if you are not feeling significantly better in the next week or two. There is no sign of fracture at this time on x-ray. I encourage you to use the walking boot, increasing weightbearing as tolerated. Elevate your foot above heart level, apply ice for 15 to 20 minutes at a time, and use Tylenol/ibuprofen as needed for discomfort. Return to emergency care if you develop new severe foot pain, blueness/coldness/numbness to the foot, or if you are very worried and need to be rechecked again immediately Referrals: Liliane Arcos [Primary Care Provider, Medicine] HPI General Date/Time Provider Initiated Documentation: 11/09/24 19:59. HPI Narrative: Lauryn is a 29-year-old female who presents to the emergency department for evaluation of R foot pain after twisting motion to her foot. Injury occurred while mounting her horse, experiencing a rolling sensation to her standing foot (left foot) and heard a crunching sound in her foot. She has been unable to bear weight due to pain. Pain is sharp initially and throbbing on the medial aspect of/top of the foot.. No associated knee or ankle pain. Took 3 ibuprofen at 1900 hours. Denies significant past medical history Related Data Home Medications ?Medication ?Instructions ?Recorded ?Confirmed dicyclomine 10 mg capsule 10 mg PO QHS 06/23/23 11/09/24 fexofenadine 180 mg tablet 180 mg PO DAILY 06/23/23 11/09/24 pantoprazole 20 mg tablet,delayed 20 mg PO DAILY 11/09/24 11/09/24 release Allergies Allergy/AdvReac Type Severity Reaction Status Date / Time bee venom protein (honey bee) Allergy Severe Anaphylaxis Verified 11/09/24 19:59 General Stated Complaint: Orthopedic BASSAM: 4 Exam Narrative Exam Narrative: General Appearance: Normal. Vital signs: Within normal limits. Extremities: Mild swelling on dorsum and medial aspect of foot. +CMS to toes, distal pulses intact. Full painless ROM to ankle and knee. Skin: No skin tears, ecchymosis, or lesions to dorsum or plantar aspect of foot. Psychiatric: Normal. Course Vital Signs Vital signs: Vital Signs Temperature 36.7 C 11/09/24 19:52 Pulse 77 11/09/24 19:52 Respiratory Rate 20 11/09/24 19:52 Blood Pressure 131/75 11/09/24 19:52 Pulse Oximetry 98 11/09/24 19:52 Temperature 36.7 C 11/09/24 19:52 Pulse 77 11/09/24 19:52 Respiratory Rate 20 11/09/24 19:52 Blood Pressure 131/75 11/09/24 19:52 Blood Pressure Position Sitting 11/09/24 19:52 Pulse Oximetry 98 11/09/24 19:52 Oxygen Delivery Method Room Air 11/09/24 19:52 Oxygen Flow Rate 0 11/09/24 19:52 Medical Decision Making Significant pain in inner and top of foot post horse mounting incident. Mild swelling on dorsum and medial aspect of foot. No skin tears, ecchymosis, or lesions. Toes and ankle move without difficulty. Full painless knee ROM. X-ray ordered to rule out fracture. While in the emergency department Lauryn received Tylenol and ice for comfort. I independently interpreted the following tests: Left foot x-ray, no acute abnormalities noted. This was confirmed by V rad radiologist. No fracture or acute abnormality noted on x-ray, likely sprain. Reviewed discharge instruction with patient, including possibility of occult fracture, PCP follow-up recommendations, use of walking boot for comfort with advancing weightbearing as tolerated, symptomatic management, and red flags indicate need for return to emergency care. She voices agreement plan of care Patient consented to the use of [facility] Imaging Data Radiologic Study: Radiologist's impression: PROCEDURE INFORMATION: Exam: XR Left Foot Exam date and time: 11/09/2024 8:47 PM Age: 29 years old Clinical indication: Other: 1st mid/prox metatarsal pain after twisting injury TECHNIQUE: Imaging protocol: Radiologic exam of the left foot. Views: 3 or more views. COMPARISON: No relevant prior studies available. FINDINGS: Bones/joints: Bone mineralization is age-appropriate. There is no evidence of fracture. No evidence of dislocation. The joint spaces are adequately preserved; no significant degenerative narrowing and no bony erosion seen. Soft tissues: No radiopaque foreign body present. There is soft tissue swelling present. IMPRESSION: 1. No acute osseous abnormality. 2. There is soft tissue swelling present PFSH All Active Problems (Updated 11/09/24 @ 22:03 by Aaliyah Francois) Foot sprain (Acute) Hoffa disease of right knee (Acute) Synovitis of right knee (Acute) Medical History (Updated 11/09/24 @ 22:03 by Aaliyah Francois) Environmental allergies IBS (irritable bowel syndrome) No acute medical problems Surgical History Hx of wisdom tooth extraction Hx of colonoscopy Social History Smoking/Tobacco Use Status: Never Smoking risk assessment performed?: Yes Alcohol Intake: current Alcohol Intake frequency: a few times a month Alcohol type: wine Drug use: Daily Substance use type: marijuana Housing: apartment Do you feel safe at home: Yes Do you feel safe in your relationship?: Yes PAWSS Have you Been Recently Intoxicated or Drunk Within the Last 30 days?: No Have you Ever Experienced Previous Episodes of Alcohol Withdrawal?: No Have you ever Experienced Withdrawal Seizures?: No Have you ever Experienced Delirium Tremens(DT)s?: No Have you ever undergone Alcohol Rehabilitation Treatment (i.e, inpt ot outpatient treatment programs)?: No Have you ever Experienced Blackouts?: No Have you ever Combined Alcohol with other Downers within the last 90 days?: No Have you ever Combined Alcohol with any other Substance of Abuse during the last 90 days?: No Positive Blood Alcohol level on Presentation? [PCS.BAL]: No Evidence of Increased Autonomic Activity (i.e. HR>120, tremor, sweating, agitation, nausea)?: No Result: 0
--- NOTE | 2024-11-09 20:15 | DI.RAD_ITS ---
Exam(s) XR FOOT LT COMPLETE EXAM: XR FOOT LT COMPLETE CLINICAL HISTORY: 1st mid/prox metatarsal pain after twisting injury. TECHNIQUE: 2D digital imaging was performed. COMPARISON: No exams were available for comparison FINDINGS: 3 views No evidence of fracture or diastasis of the Lisfranc joint on these nonweightbearing views. Great toe metatarsophalangeal joint appears unremarkable as do the other articulations. No pes planus. No inferior calcaneal spur. Bone density normal. No osseous lesions. IMPRESSION: No acute osseous findings on these nonweightbearing views of the foot. If there is clinical suspicion for Lisfranc injury than additional weight-bearing views would be recommended. DATA REPOSITORY: RADIATION DOSE DELIVERED:
[2024-11-09] MEDS: Acetaminophen 325 MG TAB 650 MG PO (20:37)
--- NOTE | 2024-11-09 21:12 | DI.VRAD_ITS ---
PROCEDURE INFORMATION: Exam: XR Left Foot Exam date and time: 11/09/2024 8:47 PM Age: 29 years old Clinical indication: Other: 1st mid/prox metatarsal pain after twisting injury TECHNIQUE: Imaging protocol: Radiologic exam of the left foot. Views: 3 or more views. COMPARISON: No relevant prior studies available. FINDINGS: Bones/joints: Bone mineralization is age-appropriate. There is no evidence of fracture. No evidence of dislocation. The joint spaces are adequately preserved; no significant degenerative narrowing and no bony erosion seen. Soft tissues: No radiopaque foreign body present. There is soft tissue swelling present. IMPRESSION: 1. No acute osseous abnormality. 2. There is soft tissue swelling present. Dictated and Authenticated by: Minh Cardoso MD. Orderin Glenn Fischer MD
== END 2024-11-09 22:32 | disposition home or self-care (01) ==
PROVIDERS: Emergency Provider Nurse Practitioner Family; PCP Nurse Practitioner Family
DX: S93.601A Unspecified sprain of right foot, initial encounter (principal); X58.XXXA Exposure to other specified factors, initial encounter
CPT/HCPCS: 99283 ×2; 73630

== ENCOUNTER 2024-12-05 03:25 | Outpatient (CLI) | payer BC, SELFPAY ==
--- NOTE | 2024-12-05 08:18 | DI.RAD_ITS ---
Exam(s) XR FOOT LT COMPLETE EXAM: XR FOOT LT COMPLETE CLINICAL HISTORY: PAIN LEFT FOOT M79.672 FU TO 11/09/24 IMAGING PAIN PERSISTS. TECHNIQUE: 2D digital imaging was performed of the left foot. Three images were obtained. AP, oblique and lateral views were obtained. COMPARISON: CR,XR XR FOOT LT COMPLETE from 11/09/2024 FINDINGS: BONES: No acute fracture is present. No bony destructive lesion is seen. JOINTS: No dislocation present. There has been no change in alignment of the foot. No acute or healing fracture is seen. SOFT TISSUE: Normal. IMPRESSION: No change in the appearance of the left foot since 11/09/2024. If there is concern for ligamentous or tendinous injury, an MRI of the left foot should be obtained. DATA REPOSITORY: RADIATION DOSE DELIVERED:
== END 2024-12-05 03:45 ==
LOC: DI 03:25
PROVIDERS: PCP Nurse Practitioner Family; Visit Provider Nurse Practitioner Family
DX: M79.672 Pain in left foot (principal)
CPT/HCPCS: 73630

== ENCOUNTER → 2024-12-16 11:40 | Outpatient (CLI) | payer BC, SELFPAY ==
--- NOTE | 2024-12-16 | DI.MRI_ITS ---
Exam(s) MR LOWER EXTREMITY LT WO EXAM: MR LOWER EXTREMITY LT WO CLINICAL HISTORY: PAIN LEFT FOOT M79.675 TECHNIQUE: Multiplanar multisequence MRI was performed without intravenous contrast. COMPARISON: No exams were available for comparison FINDINGS: SKIN: No evidence of ulcer nor subcutaneous tract. BONES/JOINTS: There is bone contusion signal evident in the base of the 2nd metatarsal and lateral aspect of the base of the great toe metatarsal and minimally in the medial base of the 3rd metatarsal. Also mild contusions signal evident in the middle and lateral cuneiform bones. Fourth and 5th tarsometatarsal joints as well as the cuboid bone appear unremarkable. There is no intraosseous signal abnormality more proximal in the foot. No abnormal hindfoot osseous signal abnormality. Talar dome unremarkable. LISFRANC JOINT: There is abnormal signal in the main Lisfranc ligament consistent with disruption of this structure. There is no true osseous cortical offset within this main Lisfranc articulation. LIGAMENTS: Abnormal appearance of main Lisfranc ligament as above. Highly suspicious for high-grade partial tearing versus full-thickness tear MUSCULOTENDINOUS STRUCTURES: No tendon tears nor tenosynovitis evident. Plantar fascia unremarkable. Achilles tendon unremarkable. SOFT TISSUES: No abnormal soft tissue masses nor collections or susceptibility artifact to suggest foreign bodies. SINUS TARSI: Unremarkable. Normal fat signal. No obvious ligament tears at this level and no evidence of sinus tarsi ganglion cyst. OTHER FINDINGS: None. IMPRESSION: 1. Main findings are the level of the main Lisfranc joint where there is high- grade partial tearing versus disruption of the main Lisfranc ligament without bone offset. 2. There is bone contusion signal/marrow edema in the base of the 2nd metatarsal and lateral base of the great toe metatarsal and minimal marrow edema in the medial base of the 3rd metatarsal. DATA REPOSITORY:
--- NOTE | 2024-12-16 17:57 | DI.VRAD_ITS ---
PROCEDURE INFORMATION: Exam: MR Left Lower Extremity Other Than Joint Without Contrast; Foot Exam date and time: 12/16/2024 2:21 PM Age: 29 years old Clinical indication: Pain; Foot; Left; Additional info: Injured 4 weeks ago. Pain medial to big toe, back to arch, swelling around lat malleolus TECHNIQUE: Imaging protocol: Magnetic resonance imaging of the left lower extremity without contrast. Exam focused on the foot. COMPARISON: CR XR FOOT LT COMPLETE 12/05/2024 8:13 AM FINDINGS: Bones/joints: Reactive marrow edema in the lateral base of the 1st metatarsal and in the base of the 2nd metatarsal. Patchy reactive marrow edema in the lateral cuneiform. LIGAMENTS: Distal tibiofibular syndesmosis: Fluid in the distal tibiofibular syndesmosis. Heterogeneous appearance of the anterior tibiofibular ligament consistent with partial tear. Deltoid ligament complex: Heterogeneous appearance of the deep fibers of the deltoid ligament consistent with partial tearing. Lisfranc ligament: Edema and heterogeneous soft tissue in the expected region of the Lisfranc ligament. No definite intact fibers are identified the findings are highly suggestive of at least a high-grade partial tear of the Lisfranc ligament. TENDONS: Flexor tendons of foot: Unremarkable. No evidence of tear. Tibialis posterior tendon: Slight posterior tibialis tenosynovitis. Peroneal tendons: Unremarkable as visualized. Extensor tendons of foot: Unremarkable. No evidence of tear. Tibialis anterior tendon: Unremarkable as visualized. Tarsal canal (Sinus tarsi): Unremarkable. Tarsal tunnel: Unremarkable. Soft tissues: Unremarkable. Plantar fascia: Unremarkable as visualized. IMPRESSION: 1. Findings suggest at least partial tearing of the Lisfranc ligament 2. Posterior tibialis tenosynovitis 3. Partial tearing distal tibiofibular syndesmosis and deep fibers of deltoid ligament. Dictated and Authenticated by: Magali Machuca MD. Orderin Josselyn Momin MD
== END ==
PROVIDERS: PCP Nurse Practitioner Family; Visit Provider Nurse Practitioner Family
DX: M79.672 Pain in left foot (principal)
CPT/HCPCS: 73718